=== PATIENT | female | born 1945 | race Caucasian/White ===

== ENCOUNTER 2018-04-19 13:12 | Inpatient (IN) ==
--- NOTE | 2018-04-18 22:36 | Discharge Summary ---
<Laxmi Covarrubias - Last Filed: 04/19/18 16:50> Orders not resulted at time of discharge: Pending orders 04/19/18 00:01 XR hip complete RT [XR] Routine H/H [Hemoglobin and Hematocrit] [HEME] Routine - Discharge Diagnosis (1) Status post revision of total hip replacement Priority: Primary Status: Acute Comments: Opsite placed. Keep dressing intact until first follow up appointment. If > 50% saturated, notify office, remove dressing and place appropriate dressing back in place. Leave Zipline and william intact. Opsite dressing is water resistant, not water-proof. OK to shower, but do not get dressing wet. Total Hip replacement Precautions Apply cold therapy 3-6x/day for 20 minutes at a time. Encourage ambulation throughout the day and incentive spirometer 10x/hour. Elevate affected extremity as tolerated. Brace: Wear hip abduction pillow when laying/sleeping (2) Arthritis of right hip Priority: Primary Status: Acute (3) Loosening of prosthetic hip Priority: Primary Status: Acute Qualifiers: Encounter type: initial encounter Qualified Code(s): T84.038A - Mechanical loosening of other internal prosthetic joint, initial encounter; Z96.649 - Presence of unspecified artificial hip joint (4) HTN (hypertension) Priority: Secondary Status: Chronic Qualifiers: Hypertension type: essential hypertension Qualified Code(s): I10 - Essential (primary) hypertension (5) Smoker Priority: Secondary Status: Chronic - Hospital Course Hospital course: Ms. Herrera is a 72 year old female - Time Spent with Patient Total time spent providing and/or coordinating discharge services: - Discharge Medications Home Medications: Aspirin Enteric Coated [Aspirin EC] 325 mg PO BID #20 tablet.dr 04/18/18 [Rx] OxyCODONE Immed Rel [Roxicodone 5 MG] 5 mg PO Q6HR PRN 7 Days #28 tablet 04/18/18 [Rx] Ascorbate Calcium [Vitamin C] 500 mg PO DAILY 04/19/18 [History] Multivitamin [One Daily Essential] 1 tab PO DAILY 04/19/18 [History] Tramadol HCl [Ultram] 50 mg PO BID PRN 04/19/18 [History] Allergies/Adverse Reactions: Allergy/AdvReac Type Severity Reaction Status Date / Time No Known Allergies Allergy Verified 04/19/18 14:07 Primary care physician: PCP NONE - Patient Status Disposition: Home, Self-Care Condition: Good - Discharge Instructions Instructions: Total Hip Replacement (DC) Follow Up With: NONE,PCP [Primary Care Provider] - <Macrina Acuna - Last Filed: 04/20/18 20:04> - NOTES TO OUTPATIENT PROVIDER Notes to Outpatient Provider: Follow up with PCP for hypotension Orders not resulted at time of discharge: Pending orders 04/19/18 16:30 Culture,Anaerobic [RM] Routine Culture,Wound [RM] Routine 04/19/18 17:11 Surgical Pathology [PTH] Routine Date of Encounter: 04/20/18 Time of Encounter: 12:10 - Discharge Diagnosis (1) Arthritis of right hip Priority: Primary Status: Acute (2) Loosening of prosthetic hip Priority: Primary Status: Acute Qualifiers: Encounter type: initial encounter Qualified Code(s): T84.038A - Mechanical loosening of other internal prosthetic joint, initial encounter; Z96.649 - Presence of unspecified artificial hip joint (3) Status post revision of total hip replacement Priority: Primary Status: Acute (4) Smoker Priority: Secondary Status: Chronic - Hospital Course Hospital course: Ms. Herrera is a 72 year old female status post Right THR revision 04/19/18- with a history of HLD, smoker. She did experience episodes of hypotension which improved with fluids. She will follow up with PCP for further evaluation of this on outpatient basis. She participated in therapy. Stable for discharge. Patient seen at bedside, without complaints. A&O x 3 Afebrile, vital signs stable. hypotensive, 94/61 at time of exam improved to 102/61 after fluid bolus. Asymptomatic, patient states this has happened after previous hospitalizations. She states she has no other symptoms, feels well and still wants to go home. Labs reviewed. H/H -9.4/28.5 stable, asymptomatic Pain control: adequate Participating in PT. All questions and concerns addressed. Educated on use of incentive spirometer. Encouraged ambulation and proper hydration. Patient educated on post-operative restrictions and post-operative care. Assessment and plan: Continue with postoperative care Discharge plan: Home with outpatient therapy, discharge today. - Time Spent with Patient Total time spent providing and/or coordinating discharge services: Date of admission: 04/19/18 18:27 Primary care physician: PCP NONE Consults: 04/19/18 18:28 Consult to Nurse Navigator [CONS] Routine Comment: ortho navigator Consult to Occupational Therapy [CONS] Routine Comment: Evaluate, develop and implement POC Reason for Consult: total hip replacement Does patient have active BEDREST order?: No Is patient medically & hemodynamically stable?: Yes Consult to Physical Therapy [CONS] Routine Comment: Evaluate, develop and implement POC Reason for Consult: total hip replacement Does patient have active BEDREST order?: No Is patient medically & hemodynamically stable?: Yes Consult to Wool Fleece Sorter [CONS] Routine Reason for SW Consult: post op joint replacement RT Post Op Consult [CONS] Routine Discharging clinician: Franklin Abdul Anticipated date of discharge: 04/20/18 Labs on day of discharge: Labs from last 24 hours 04/20/18 04/20/18 05:59 05:59 Hgb 9.4 L Hct 28.5 L Sodium 138 Potassium 4.4 Chloride 107 Carbon Dioxide 26 BUN 15 Creatinine 0.85 Est GFR ( Amer) > 60 Est GFR (Non-Af Amer) > 60 BUN/Creatinine Ratio 18 Glucose 147 H Calculated Osmolality 290 Calcium 8.7 - Impressions ITS Impressions Hip X-Ray 04/19/18 00:01 IMPRESSION: Expected postoperative changes following right hip arthroplasty revision in near anatomic alignment. No evident complication. D/ / Tyler Flores / Tyler Flores Interpreting Provider: Tyler Flores - Patient Status Functional capacity at discharge: uses cane/walker Overall status at discharge: patient is progressing back to baseline - Diet and Activity Activity: as per physical therapy Diet: advance to your usual diet
[2018-04-19] MEDS ORDERED: Albuterol 2.5 MG/3 ML NEBULIZER IH ONE (13:29)
[2018-04-19] MEDS ORDERED: CeFAZolin Syr 2,000MG/20 ML 2,000 MG/20 ML SYRINGE IVPB ONE (13:29)
[2018-04-19] MEDS ORDERED: Ringers Solution, Lactated 1,000 ML IVC SCH ×2 (13:30→18:28)
[2018-04-19] MEDS ORDERED: *HR* Propofol 200 MG/20 ML VIAL IVP ONE (14:36)
[2018-04-19] MEDS ORDERED: *HR* Midazolam HCl 2 MG/2 ML VIAL ONE (14:36)
[2018-04-19] MEDS ORDERED: *HR* FentaNYL (PF) 100 MCG/2 ML VIAL ONE ×2 (14:36→15:33)
[2018-04-19] MEDS ORDERED: Famotidine 20 MG/2 ML VIAL IVP ONE (14:41)
[2018-04-19] MEDS ORDERED: Pregabalin 75 MG CAPSULE PO ONE (14:42)
[2018-04-19] MEDS ORDERED: Acetaminophen IV 1,000 MG/100 ML INFUS..BTL IVPB ONE (14:42)
--- NOTE | 2018-04-19 14:45 | Anesthesia Evaluation PreOp ---
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 History: Denies Any Significant HX Other Medical History: Denies Any Significant HX Anesthesia History: No Prior Anesthetic Complications, Past Anesthesia (R-Hip replacement 2006, L-knee scope/meniscal repair, R-Rotator cuff repair, Colonoscopy) Alcohol Use: none Drug use: none Medications and Allergies Aspirin Enteric Coated [Aspirin EC] 325 mg PO BID #20 tablet.dr 04/18/18 [Rx] OxyCODONE Immed Rel [Roxicodone 5 MG] 5 mg PO Q6HR PRN 7 Days #28 tablet 04/18/18 [Rx] Ascorbate Calcium [Vitamin C] 500 mg PO DAILY 04/19/18 [History] Multivitamin [One Daily Essential] 1 tab PO DAILY 04/19/18 [History] Tramadol HCl [Ultram] 50 mg PO BID PRN 04/19/18 [History] Allergy/AdvReac Type Severity Reaction Status Date / Time No Known Allergies Allergy Verified 04/19/18 14:07 - Meds/Allergy Pre-op Review Medications Reviewed: Yes Allergies Reviewed: Yes Beta Blockers on Current Med List: No Anesthesia Results - Labs Laboratory Tests 04/14/18 04/14/18 04/14/18 13:24 13:24 13:24 WBC 5.5 Hgb 11.7 Hct 35.2 L Plt Count 213 PT 11.3 INR 1.0 Sodium 142 Potassium 4.0 Chloride 110 H Carbon Dioxide 24 BUN 10 Creatinine 0.89 Est GFR (Non-Af Amer) > 60 Anesthesia Exam O2 Sat Height 1.73 m Height 1.73 m Weight 73.482 kg Weight 73.482 kg O2 Sat by Pulse Oximetry 98 Vital Signs Temp Pulse Resp BP Pulse Ox 98.6 F 78 18 132/76 98 04/19/18 13:31 04/19/18 13:31 04/19/18 13:31 04/19/18 13:31 04/19/18 13:31 Height: 5'8" Weight: 162# BMI = 25 NPO (# of Hours): MNoc - HEENT Pupil (Motor): Pupils equal, EOMI Mallampati: II Teeth: Edentulous Denture Type: Upper: Complete, Lower: Complete Oral Opening: Greater than 3 - MALTER OPERATOR LOC: Oriented MALTER OPERATOR Motor: Normal RUE, Normal LUE, Normal RLE, Normal LLE, Normal Face MALTER OPERATOR Sensory: Normal: RUE, LUE, RLE, LLE, Face - Cardiac Rhythm: Regular - Pulmonary Breath Sounds: bilateral Clear Respiratory Effort: Symmetrical Anesthesia Assess/Plan ASA Score: 2 (Smoker) Modified Charisma Scale for Level of Consciousness: Cooperative, oriented, and tranquil Anesthetic Plan: General, Regional Monitoring Plan: Standard Monitors Recovery Plan: PACU Anes Supervising Prov Stmt: Pt seen/evaluated, R&B discussed, questions answered and consent obtained. Yaneth Lennon MD
[2018-04-19] MEDS ORDERED: *HR* HYDROmorphone (PF) 1 MG/ML SYRINGE IVP PRN (14:49)
[2018-04-19] MEDS ORDERED: *HR* OxyCODONE Immed Rel 5 MG TABLET PO PRN ×2 (14:49→18:28)
[2018-04-19] MEDS ORDERED: *HR* Promethazine 25 MG/ML VIAL IVP PRN (14:49)
--- NOTE | 2018-04-19 14:55 | History & Physical Report ---
Date of Encounter: 04/19/18 Time of Encounter: 14:55 24 Hour HP Update - Instructions Instructions: If the History and Physical is less than 30 days old and was completed prior to A.M. admission and or procedure and has NOT been updated on calendar day of procedure please complete this update prior to performing procedure. - Update Patient reports changes in Medical Condition: No Changes in examination, assessment, or condition: No Changes in Medication: No Preop tests/diagnostics Reviewed: Yes Surgery Remains Indicated: Yes Consent for Planned Operative Procedure(s) Verified: Yes - Pre-Operative Checklist Preoperative Checklist Indicated: No Prophylactic Antibiotic Ordered: Yes Is VTE Prophylaxis Indicated?: Yes
[2018-04-19] MEDS ORDERED: Ondansetron 4 MG/2 ML VIAL ONE (15:07)
[2018-04-19] MEDS ORDERED: Dexamethasone 4 MG/ML VIAL ONE (15:07)
[2018-04-19] MEDS ORDERED: Lidocaine -MPF 2% 2 ML VIAL ONE ×2 (15:07→17:24)
[2018-04-19] MEDS ORDERED: *HR* Succinylcholine 200 MG/10 ML VIAL IVP ONE (15:07)
[2018-04-19] MEDS ORDERED: Lidocaine -MPF 1% 5 ML AMPUL ONE (15:22)
[2018-04-19] MEDS ORDERED: Ethanol\\Acetic Acid\\Na Ace\\Ben 1,000 ML IRRIG.SOLN IR ONE (15:33)
[2018-04-19] MEDS ORDERED: *HR* Morphine Sulfate/PF 10 MG/10 ML AMPUL ONE (15:36)
--- NOTE | 2018-04-19 16:05 | Anesthesia Procedures ---
Date of Encounter: 04/19/18 Time of Encounter: 15:48 Procedures: Anesthesia - Epidural/Spinal Patient ID/Chart reviewed: Yes Patient examined: Yes Consent Obtained: Yes Supplemental Oxygen: Nasal Cannula Supplemental Oxygen Rate (L/min): 2 Sedation: Versed (mg): 2 Site Prep: Aseptic Technique, Sterile prep and drape, 0.5% Chlorhexidine/Alcohol Patient position: left lateral decubitus Local Anesthetic: Lidocaine 1% Amount of Local Anesthetic used: 2 Interspace Used: L3-L4 Blood: No CSF: Yes Paresthesia: No Spinal Dose: 2.5ml of 0.5% bup plain, 25mcg fent&200mcgduramorp Procedure: vss though out procedure, tolerated well, block per request of surgeon.
[2018-04-19] MEDS ORDERED: *HR* PHENYLEPHRINE 1,000 MCG/10 ML SYRINGE IVP ONE ×3 (16:19→17:13)
[2018-04-19] MEDS ORDERED: Lidocaine -MPF 4% 5 ML AMPUL ONE (16:41)
--- NOTE | 2018-04-19 17:16 | Orthopedic Operative Note ---
Date of procedure: 04/19/18 Pre-op diagnosis: Painful right hip hemiarthroplasty Post-op diagnosis: same Procedure: h procedure: Revision right total hip replacement Estimated blood loss 200 mL Hardware Skytop: Metal and plastic hardware: 56 Trident cup, M.D. and liner, size 5 cemented stem 28 mm +10 head with Jaida Dictation of procedure: Patient brought to the operating room placed on the operating room table. After general anesthesia was administered patient was placed left side down right side up side up lateral decubitus position. All pressure points were padded appropriately. The patient received IV antibiotics prior skin incision. A standard posterior approach was performed the right hip incorporating the previous incision. The incision was made through the skin and subcutaneous tissue hemostasis was obtained with Bovie cautery. Using careful sharp disse ction the tensor fascia was identified and incised along the length of the incision. Patient had extensive scar tissue around the femoral component. This was cleared and the hip was dislocated. The femoral head was removed, soft tissue around the cemented stem was removed and the femoral stem was removed without incident. Attention was then turned to the exposure the acetabulum. Soft tissue was removed from the acetabulum, the acetabulum was first reamed medially with a 47 and then in 15 degrees of anteversion 45 degrees off the horizontal up to size 55. A 56 cup was impacted in place in 15 degrees of anteversion 45 degrees off the horizontal. This had good fit and fixation. The central metal liner was impacted in place the Broderick taper was engaged and had good fixation. Attention was then turned to the femoral side the patient had previous cemented stem, the goal was to cement within the cemented mantle. It was reamed and broached up to a size 5 cemented in 20 degrees of anteversion. The 5 stem was cemented in place and held until cement hardened in 20 degrees of anteversion. Trial reduction revealed excellent stability with the +10 head. Trial head was removed real head and Jaida was seated and secured. Hip was reduced. This had excellent stability with full extension and full flexion the knee in full extension no shuck for flexion to 90 degrees adduction of 30 degrees internal rotation 60 degrees with no instability. Deep tissue sent for 2 minutes with a antibacterial solution. It was irrigated out pulse irrigation. The PA close the hip The fascia of the vastus lateralis and the gluteus medius were closed with a running #2 PDS suture tensor fascia was closed with a running #2 PDS suture subcutaneous tissue was irrigated and closed deep #1 PDS suture superficially with 0 PDS suture skin was closed with skin william. Patient was placed in a sterile dressing postoperative brace extubated transferred to recovery room stable condition. Anesthesia: GETA Surgeon: Franklin Abdul Was there an assistant editor present: No Estimated blood loss (cc): 200 Condition: stable Disposition: PACU
[2018-04-19] MEDS ORDERED: *HR* Enoxaparin 30 MG/0.3 ML SYRINGE SQ SCH (18:00)
[2018-04-19 18:08] LABS: Hematocrit 30.5 % (35.3-44.9)
[2018-04-19 18:10] LABS: Hemoglobin 10.1 g/dL (11.5-15.4)
--- NOTE | 2018-04-19 18:23 | Anesthesia Evaluation Post Op ---
Date of Encounter: 04/19/18 Time of Encounter: 18:18 - Vital Signs Vital Signs: Vital Signs Temp Pulse Resp BP Pulse Ox 04/19/18 18:09 98 F 68 14 102/62 100 04/19/18 17:59 65 14 104/58 99 04/19/18 17:49 70 12 103/58 99 04/19/18 17:39 99.2 F 75 15 114/66 99 04/19/18 15:54 76 15 114/64 100 04/19/18 15:33 74 16 128/76 100 04/19/18 13:31 98.6 F 78 18 132/76 98 Intake and Output 04/19/18 04/19/18 04/19/18 07:59 15:59 23:59 Other: Weight 73.482 kg Patient Weight 04/19/18 23:59 Weight 73.482 kg - Lungs Lungs: Clear Ascult./Percussion - Airway Airway: Non-obstructed - Cardiovascular Regular Rate - Pain Pain Scale: 0 Pain Scale used: Numeric (1 - 10) - Nausea Vomiting Nausea Vomiting: Not Present - Hydration Hydration: Ice chips, Has not voided - Discharge PostOp Status: Transfer Patient to floor Anes Supervising Prov Stmt: Pt seen/evaluated, VSS and has met criteria for discharge to home. - MD Saji
[2018-04-19] MEDS ORDERED: Naloxone 0.4 MG/ML INJ IVP PRN (18:28)
[2018-04-19] MEDS ORDERED: Ondansetron 4 MG/2 ML VIAL IVP PRN (18:28)
[2018-04-19] MEDS ORDERED: traMADol 50 MG TABLET PO PRN (18:28)
[2018-04-19] MEDS ORDERED: MOM Conc 10 ML UD.LIQ PO PRN (18:28)
[2018-04-19] MEDS ORDERED: *HR* OxyCODONE/APAP 5/325 TABLET PO PRN (18:28)
[2018-04-19] MEDS ORDERED: Temazepam 15 MG CAPSULE PO PRN (18:28)
[2018-04-19] MEDS ORDERED: Sennosides 8.6 MG TABLET PO PRN (18:28)
[2018-04-19] MEDS: Ascorbic Acid 500 MG TABLET PO SCH (21:56)
[2018-04-20] MEDS ORDERED: *HR* Enoxaparin 30 MG/0.3 ML SYRINGE SQ SCH (06:00)
--- NOTE | 2018-04-20 06:17 | Orthopedics Progress Note ---
Date of Encounter: 04/20/18 Time of Encounter: 06:16 Subjective Interval history: Patient was seen this morning doing well without complaints. Afebrile vital signs stable. Operative extremity: Neurovascularly intact Dressing clean dry and intact Calves nontender Assessment and plan: Continue with postoperative care Objective Vital signs: Vital Signs Temp Pulse Resp BP Pulse Ox 04/20/18 03:53 97.5 F L 66 18 94/58 97 04/19/18 22:58 97.4 F L 65 14 95/48 95 04/19/18 22:00 56 16 76/47 96 04/19/18 21:00 60 14 103/66 96 04/19/18 20:00 57 14 95/60 96 04/19/18 19:30 61 14 102/67 98 04/19/18 18:19 98 F 64 14 103/65 100 04/19/18 18:09 98 F 68 14 102/62 100 04/19/18 17:59 65 14 104/58 99 04/19/18 17:49 70 12 103/58 99 04/19/18 17:39 99.2 F 75 15 114/66 99 04/19/18 15:54 76 15 114/64 100 04/19/18 15:33 74 16 128/76 100 04/19/18 13:31 98.6 F 78 18 132/76 98 Intake and Output 04/19/18 04/19/18 04/20/18 15:59 23:59 07:59 Intake Total 120 / 120 200 / 200 Output Total 0 / 0 Balance 120 / 120 200 / 200 Intake: IV Fluids 120 / 120 Ancef Syringe 2,000 MG/20 ML 2, 20 / 20 000 mg In 20 ml @ 200 mls/hr IVPB PREOP ONE Rx#:[id number] Ancef 2,000 MG In 0.9 % Sodium 100 / 100 Chloride 100 ML @ 200 mls/hr IVPB Q8HR TERESO Rx#:[id number] Oral 0 / 0 200 / 200 Output: Urine 0 / 0 Other: # Voids 1 Weight 73.482 kg 76.4 kg Patient Weight 04/20/18 23:59 Weight 76.4 kg - Labs CBC & BMP: 04/19/18 17:48 Labs: Abnormal lab results Hgb 10.1 g/dL (11.5-15.4) L D 04/19/18 17:48 Hct 30.5 % (35.3-44.9) L 04/19/18 17:48 Consult Discharge Plan - Plan Referrals: NONE,PCP [Primary Care Provider] -
[2018-04-20 06:24] LABS: Hematocrit 28.5 % (35.3-44.9); Hemoglobin 9.4 g/dL (11.5-15.4)
[2018-04-20 06:41] LABS: BUN/Creatinine Ratio 18 (6-26); Blood Urea Nitrogen 15 mg/dL (8-23); Calcium 8.7 mg/dL (8.6-10.3); Carbon Dioxide 26 mEq/L (23-29); Chloride 107 mEq/L (98-107); Glucose 147 mg/dL (70-105); Osmolality,Calculated 290 (280-300); Potassium 4.4 mEq/L (3.5-5.1); Sodium 138 mEq/L (136-145); eGFR For Non-African Americans > 60 (> 60)
[2018-04-20] MEDS: Ascorbic Acid 500 MG TABLET PO SCH (08:19)
[2018-04-20] MEDS ORDERED: NON-FORMULARY MEDICATION 1 EACH EACH (Multivitamin [One Daily Essential] 1 TAB) PO SCH (09:00)
[2018-04-20] MEDS ORDERED: NON-FORMULARY MEDICATION 1 EACH EACH (Ascorbate Calcium [Vitamin C] 500 MG) PO SCH (09:00)
[2018-04-20] MEDS ORDERED: Multivit/Ca/Min/Fe/FA 1 TAB TABLET PO SCH (09:00)
[2018-04-20] MEDS ORDERED: 0.9 % Sodium Chloride 500 ML IVC ONE (12:01)
[2018-04-20 13:28] VITALS: BP 102/61
== END 2018-04-20 14:13 | disposition home or self-care (01) | DRG 468 ==
LOC: SAMDAY 13:12 → 3NENU 18:27
PROVIDERS: ADMIT Orthopaedic Surgery; ATTEND Orthopaedic Surgery